=== PATIENT | male | born 1980 | race Caucasian/White ===

== ENCOUNTER 2024-11-23 13:13 | Emergency (ER) | payer BC, SELFPAY ==
[2024-11-23 13:16] VITALS: BP 149/81; PULSE 78; TEMP 36.8; O2SAT 97; BMI 30.1
--- NOTE | 2024-11-23 13:28 | XR_ITS ---
The [address] [address] Patient Name: EDWARD SOARES MRN: [id number] date: 1980 Sex: M Assigned Patient Location: ER Current Patient Location: ED.MAIN Accession/Order Number: [id number] Exam Date: 11/23/2024 14:14 Report Date: 11/23/2024 14:18 At the request of: LALITHA SANTILLAN MD Procedure: XR ankle LT min 3V LEFT ANKLE - 3 views CLINICAL HISTORY: [place] a pop, likely Achilles tendon rupture COMPARISON: None FINDINGS: Soft tissue swelling is noted. Ankle mortise appears intact. No acute bony process. XR/XR ankle LT min 3V IMPRESSION: SOFT TISSUE SWELLING. NO ACUTE BONY PROCESS IS SEEN. Impression dictated by: Ashok James Jr. DSushilOSushil 11/23/2024 2:18 PM Dictation Location: [place] [address] Electronically authenticated by: [id number] Y Date: 11/23/2024 14:18
--- NOTE | 2024-11-23 13:29 | ED.GENADUL1 ---
HPI HPI - General Adult General Chief complaint: Extremity Injury, Lower Stated complaint: LOWER EXTREMITY PAIN Time Seen by Provider: 11/23/24 13:24 Source: patient Mode of arrival: walk-in Limitations: no limitations History of Present Illness HPI narrative: 44-year-old male presents to the emergency department for pain in his left ankle. 3 days ago he was pushing a heavy item up a ramp and felt a popping sensation at the bottom of his left calf. Since then its become bruised and it hurts when he walks. He has been walking with his foot slightly outturned and more weight on his heel. The foot itself does not hurt. Related Data Allergies Allergy/AdvReac Type Severity Reaction Status Date / Time acetaminophen (From Percocet) AdvReac Severe Vomiting Verified 11/23/24 13:22 oxycodone (From Percocet) AdvReac Severe Vomiting Verified 11/23/24 13:22 Opioid HPI Opioid Management Most Recent Opioid Data: Last Pain Scale 2 Today, 13:16 Review of Systems ROS Narrative A ten point review of systems is negative except as noted above. PFSH PFSH Social History Little interest or pleasure in doing things: not at all Feeling down, depressed, or hopeless: not at all Exam Narrative Exam Narrative: Nurses note and vital signs reviewed and patient is not hypoxic. General: The patient appears well and in no apparent distress. Patient is resting comfortably on cart. Skin: Warm, dry, no pallor noted. There is no rash noted. Head: Normocephalic, atraumatic Eye: Normal conjunctiva, no drainage Ears, Nose, Mouth, and Throat: oral mucosa is moist. Nares patent. Cardiovascular: Regular Rate and Rhythm Respiratory: Patient is in no distress, no accessory muscle use, lungs are clear to auscultation, no wheezing, rales or rhonchi Back: non-tender GI: Soft and nontender Musculoskeletal: He has bruising inferior to the lateral and medial malleoli. The foot and ankle do not have any palpable tenderness. The Achilles tendon is not palpable on the left and Haywood test is abnormal. Neurological: A&O, normal speech Psychiatric: Cooperative Constitutional Vital Signs, click to edit/add: Last Vital Signs Temp 98.3 F 11/23/24 13:16 Pulse 78 11/23/24 13:16 Resp 20 11/23/24 13:16 BP 149/81 H 11/23/24 13:16 Pulse Ox 97 11/23/24 13:16 O2 Del Method Room Air 11/23/24 13:16 Course Vital Signs Vital signs: Vital Signs Temperature 98.3 F 11/23/24 13:16 Pulse Rate 78 11/23/24 13:16 Respiratory Rate 20 11/23/24 13:16 Blood Pressure 149/81 H 11/23/24 13:16 Pulse Oximetry 97 11/23/24 13:16 Oxygen Delivery Method Room Air 11/23/24 13:16 Temperature 98.3 F 11/23/24 13:16 Pulse Rate 78 11/23/24 13:16 Respiratory Rate 20 11/23/24 13:16 Blood Pressure 149/81 H 11/23/24 13:16 Pulse Oximetry 97 11/23/24 13:16 Oxygen Delivery Method Room Air 11/23/24 13:16 Medical Decision Making MDM Narrative Medical decision making narrative: X-rays of his ankle are negative by my interpretation. His exam is consistent with Achilles tendon rupture and the patient was informed. He will follow-up with Dr. Austin, with whom I spoke, and follow-up is arranged. He recommends short leg splint. Treatment diagnosis and follow-up were discussed with the patient. He was also placed on crutches. The following procedure was performed by me. Left short leg splint was applied. He is neurovascularly intact. Differential Diagnosis Differential Diagnosis: Achilles tendon rupture, fracture Imaging Data Left ankle: My impression: No acute bony abnormality Radiologist's impression: ITS Impressions Ankle X-Ray 11/23/24 13:28 IMPRESSION: SOFT TISSUE SWELLING. NO ACUTE BONY PROCESS IS SEEN. Impression dictated by: Ashok James Jr., D.O. 11/23/2024 2:18 PM Dictation Location: [place] [address] Electronically authenticated by: [id number] Y Date: 11/23/2024 14:18 Discharge Plan Discharge Chief Complaint: Extremity Injury, Lower Clinical Impression: Achilles tendon rupture Patient Disposition: Home, Self-Care Time of Disposition Decision: 14:08 Condition: Good Mode of Transportation: Private Vehicle Print Language: [place] Instructions: Achilles Tendon Rupture (ED) Referrals: Physician,Non-Staff, MD [Primary Care Provider] - 1 week Zeus Austin DPM [Physician, Podiatry] - 1 week
== END 2024-11-23 14:59 | disposition home or self-care (01) ==
PROVIDERS: Emergency Provider Emergency Medicine
DX: S86.012A Strain of left Achilles tendon, initial encounter (principal); S90.02XA Contusion of left ankle, initial encounter; M25.572 Pain in left ankle and joints of left foot; X50.0XXA Overexertion from strenuous movement or load, initial encounter
CPT/HCPCS: 29515; 73610; 99283

== ENCOUNTER 2024-11-30 12:14 | Outpatient (OUT) | payer BC, SELFPAY ==
--- NOTE | 2024-11-30 12:22 | ECG_ITS ---
[facility] Test Date: 2024-11-30 Pat Name: EDWARD SOARES Department: Room: - Gender: Male [place]: : 1980 Requested By: KELLY VILLELA Order Number: [id number] Ayah MD: HAKEEM DUPREE M.D. Measurements Intervals [place] Rate: 73 P: 52 MS: 158 QRS: 34 QRSD: 97 T: 43 QT: 372 QTc: 410 Interpretive Statements SINUS RHYTHM Normal ECG No previous ECG available for comparison Electronically Signed On 11-30-2024 20:53:08 EDT by HAKEEM DUPREE M.D.
[2024-11-30 13:12] LABS: Anion Gap 10.4; Blood Urea Nitrogen 15.0 mg/dL (7.0-18.0); Calcium 9.1 mg/dL (8.5-10.1); Carbon Dioxide 26.4 mmol/L (21.0-32.0); Chloride 109 mmol/L (98-107); Estimated GFR (African America >60 (>=60 mL/min/1.73m^2); Estimated GFR (Non-African Ame >60 (>=60 mL/min/1.73m^2); Glucose 134 mg/dL (74-106); Potassium 3.8 mmol/L (3.5-5.1); Sodium 142 mmol/L (136-145)
== END 2024-11-30 12:15 | disposition home or self-care (01) ==
LOC: PST 12:17
PROVIDERS: Visit Provider Podiatrist Foot & Ankle Surgery
DX: Z01.810 Encounter for preprocedural cardiovascular examination (principal); Z01.812 Encounter for preprocedural laboratory examination; S86.012A Strain of left Achilles tendon, initial encounter
CPT/HCPCS: 36415; 80048; 93005

== ENCOUNTER 2024-12-04 06:53 | Day surgery (SDC) | payer BC, SELFPAY ==
[2024-11-30 13:00] VITALS: BP 146/84; PULSE 88; TEMP 36.8; O2SAT 97; BMI 30.7
[2024-12-04] VITALS (11 sets, daily range): BP systolic 117–161; BP diastolic 65–82; PULSE 68–87; TEMP 36.1; O2SAT 95–98; BMI 30.3
[2024-12-04 07:03] LABS: Hematocrit 48.5 % (42.0-54.0); Hemoglobin 16.7 g/dL (14.0-18.0); Immature Granulocytes Abs Auto 0.05 10^3/uL (0.00-0.03); Immature Granulocytes Pct Auto 0.5 % (0.0-0.5); Lymphocytes Absolute Auto 2.8 10^3/uL (1.2-3.8); Mean Corpuscular HGB Conc 34.4 g/dL (29.9-35.2); Mean Corpuscular Hemoglobin 30.2 pg (25.9-34.0); Mean Corpuscular Volume 87.7 fL (80.0-94.0); Platelet Count 277 10^3/uL (150-450); Red Blood Count 5.53 10^6/uL (4.70-6.10); White Blood Count 10.9 10^3/uL (4.0-11.0)
--- NOTE | 2024-12-04 08:17 | PC.NURSE ---
(0802) Final timeout completed. Patient pre-medicated per Dr. Dan. (0804) Patient placed on monitor and O2 at 2l/min via nasal cannula. Patient positioned on right side. Left leg draped in sterile technique per Dr. Dan (0805) Left popliteal nerve visualized via Ultrasound. (0806) Left popliteal site injected. Medication injected to site without difficulty. (0808) Left popliteal block completed. Patient tolerated it well. See posted vital signs.
[2024-12-04] MEDS: CEFAZOLIN SODIUM 2 GM/50 ML D5W PREMIX IV (08:57)
--- NOTE | 2024-12-04 09:14 | PM.ORONB ---
Brief Operative Note Date of procedure: 12/04/24 Pre-op diagnosis general: Left Achilles tendon rupture Post-op diagnosis: same as pre-op Procedure: Procedure performed: Repair of left Achilles tendon rupture Indications for procedure: Mr. Luna is a 44-year-old male smoker who was moving furniture approximately 2 weeks ago and felt a pop over his left Achilles tendon. Then approximately 3 days after this incident he went to the emergency department secondary to continued bruising and weakness and was diagnosed with left Achilles rupture. He followed up in my office shortly after and we discussed the potential risks and benefits of surgical versus nonsurgical repair. I outlined the potential complications including incision healing issues, infection and rerupture. I specifically outlined that given he is a smoker he is at higher risk for dehiscence and infection. He has been off of work since he was seen in my office and will likely require at least 3 months off of work following surgical repair given his job description. Patient elected to undergo the above procedure Intraoperative findings: Mid substance rupture of the Achilles tendon in the watershed area with 3 cm of proximal retraction of the proximal stump of the Achilles tendon. Residual hematoma was noted and evacuated. Paratenon was torn at the rupture site but reapparoximated. Plantaris tendon was intact. Procedure in detail: Patient was identified in preoperative holding by myself which time correct side and site were marked and consent was obtained. Regional anesthesia was administered by the anesthesia team and patient was brought back to to the operating theater. General anesthesia was administered as was a thigh tourniquet. Patient was then flipped onto the operative table in a well-padded prone position taking care to pad all bony prominences. The left lower extremity was then prepped and draped in usual sterile fashion and formal timeout was performed. The left lower extremity was exsanguinated and the tourniquet was inflated. Longitudinal incision was placed over the proximal stump of the Achilles tendon and a combination of sharp and blunt dissection gained access to the proximal stump while reflecting the peritenon meticulously. Hematoma was evacuated. Then the proximal stump was sewn with suture tape using a Krak?w technique securing the medial and lateral borders of the proximal stump Achilles tendon. The 2 ends of the suture tape were brought through the distal end of the proximal stump then while pulling distal traction the 2 ends of the Achilles tendon could be reapproximated. A stab incision was placed over the posterior calcaneal tubercle near the Achilles insertion at its medial aspect as well as at its lateral aspect. Blunt dissection was taken down to bone and a 3.6 mm drill hole was placed in the medial aspect of the posterior tubercle followed by a 3.6 mm drill hole placed in through the lateral aspect of the drill hole. Then hemostats were used to pass the suture from the medial aspect of the tendon through the stab incision on the medial posterior tubercle followed by the lateral suture being passed through the lateral stab incision. Each suture was secured to a knotless anchor accordingly. Then while holding tension ensuring the tendon ends were reapproximated the knotless anchor was placed into the medial aspect of the posterior tubercle followed by the lateral again while holding adequate tension and plantar flexing the foot. Once the sutures were secured into the knotless anchor the tendon stumps were adequately reapproximated and tension was tested and was noted to be adequate and secure. Then a limited amount of absorbable Monocryl suture was used to reapproximate the tendon ends further. The surgical site was irrigated with copious saline and the incision over the proximal stump was closed in layers while the 2 stab incisions were closed with a single layer of skin suture. The tourniquet was deflated noting a prompt hyperemic response. A dry sterile dressing consisting of Xeroform, 4 x 4's, ABDs, Kerlix was applied. Then a multilayer modified Martin posterior splint was applied with the foot in 20 degrees of plantarflexion. Capillary refill was brisk to the toes and the patient was transferred to the PACU with vital signs stable. Postoperative plan: Discharge home under family's care Nonweightbearing left foot/ankle Prescriptions were sent to his pharmacy Elevate above level of the heart Follow-up in my office in 1 week for incision check and likely transition to a fiberglass cast Implants: Medline 4.5 mm knotless anchors x2 with suture tape Anesthesia: regional and General-ET Surgeon: Zeus Austin Estimated blood loss (mL): 10 Pathology: none sent Condition: stable Disposition: PACU
--- NOTE | 2024-12-04 11:18 | XR_ITS ---
[place] [id number] Patient Name: EDWARD SOARES MRN: [id number] date: 1980 Sex: M Assigned Patient [facility] Current Patient Location: [facility] Accession/Order Number: [id number] Exam Date: 12/04/2024 12:22 Report Date: 12/04/2024 12:24 At the request of: KELLY VILLELA DPAdriano Procedure: XR ankle LT min 3V 3 views left ankle plain film COMPARISON: 11/23/2024 HISTORY: Postop left Achilles tendon repair ACUTE FINDINGS: None DEGENERATIVE CHANGE: Unremarkable SOFT TISSUE FINDINGS: Unremarkable JOINT EFFUSION: None POSTOP CHANGES: None BONE MINERALIZATION: Adequate XR/XR ankle LT min 3V IMPRESSION: No acute findings. Impression dictated by: Paul Wagner M.D. 12/04/2024 12:24 PM Dictation Location: [place] [address] Electronically authenticated by: [id number] Y Date: 12/04/2024 12:24
[2024-12-04] MEDS: ONDANSETRON 4 MG RAPDIS TABLET SL (11:22)
--- NOTE | 2024-12-04 11:57 | PC.NURSE ---
1151- Dr. Dan notified that patient is nauseated with dry heaves . New orders received.
== END 2024-12-04 13:00 | disposition home or self-care (01) ==
PROVIDERS: Anesthesiology; Visit Provider Podiatrist Foot & Ankle Surgery
PROC: (CPT 1472; principal; 2024-12-04 08:30)
DX: S86.012A Strain of left Achilles tendon, initial encounter (principal); X50.0XXA Overexertion from strenuous movement or load, initial encounter; F17.200 Nicotine dependence, unspecified, uncomplicated; M67.02 Short Achilles tendon (acquired), left ankle
CPT/HCPCS: 27650; 36415; 64445; 73610; 82948; 85025; C1713; J0360; J0690; J1100; J1453; J1885; J2250; J2405; J2704; J2795; J3010; Q0162